=== PATIENT | male | born 1955 | race Caucasian/White ===

== ENCOUNTER 2016-07-06 12:54 | Day surgery (SDC) | payer OTHER ==
--- NOTE | 2016-06-30 10:14 | EKG REPORT ---
SEVERITY:- NORMAL ECG - SINUS RHYTHM : Confirmed by: Felicia Tejeda 30-Jun-2016 10:13:26
[2016-06-30 10:49] LABS: HEMATOCRIT 46.3 % (37.9-51.0); HEMOGLOBIN 15.7 g/dL (13.5-17.0); HGB HCT DIFFERENCE 0.8; MEAN CORPUSCULAR HEMOGLOBIN 30.2 pg (27.0-33.4); MEAN CORPUSCULAR HGB CONC 33.8 g/dL (32.0-36.0); MEAN CORPUSCULAR VOLUME 89 fl (80-97); RED BLOOD COUNT 5.18 10^6/uL (4.35-5.55); RED CELL DISTRIBUTION WIDTH 13.4 % (11.5-14.0); WHITE BLOOD COUNT 5.6 10^3/uL (4.0-10.5)
[2016-06-30 11:10] LABS: ALANINE AMINOTRANSFERASE 37 U/L (21-72); ALBUMIN 4.4 g/dL (3.5-5.0); ALKALINE PHOSPHATASE 66 U/L (38-126); ANION GAP 11 (5-19); ASPARTATE AMINO TRANSFERASE 29 U/L (17-59); BILIRUBIN,TOTAL 0.9 mg/dL (0.2-1.3); BLOOD UREA NITROGEN 21 mg/dL (7-20); CALCIUM 9.8 mg/dL (8.4-10.2); CARBON DIOXIDE 29 mmol/L (22-30); CHLORIDE 102 mmol/L (98-107); CREATININE RESULT 1.07 mg/dL (0.52-1.25); GLUCOSE 95 mg/dL (75-110); SODIUM 141.8 mmol/L (137-145); TOTAL PROTEIN 7.4 g/dL (6.3-8.2)
[~2016-07-06 12:54] MED LIST: ACETAMINOPHEN 325 MG TABLET PO PRN; CEFAZOLIN SODIUM 1 GM in DEXTROSE 5%-WATER 50 ML IV PRN; GLYCOPYRROLATE INJ 0.4 MG/2 ML VIAL ONE; LACTATED RINGERS 1000 ML IV PRN; LIDOCAINE 0.5% INJ-PF (5 MG/ML) 50 ML SDV SUBCUT PRN; LIDOCAINE 2% INJ-PF (20 MG/ML) 10 ML AMPUL ONE; METOCLOPRAMIDE HCL INJ/PF 10 MG/2 ML SDV ONE; NEOSTIGMINE METHYLSULFATE 10 MG/10 ML VIAL ONE; ONDANSETRON HCL INJ/PF 4 MG/2 ML SDV ONE; ROCURONIUM BROMIDE INJ 50 MG/5 ML VIAL IV ONE; SUCCINYLCHOLINE CHLORIDE INJ 200 MG/10 ML VIAL ONE
[2016-07-06] MEDS ORDERED: BUPIVACAINE HCL 0.25 % INJ/PF (2.5 MG/1 ML) 30 ML VIAL ONE (13:59)
[2016-07-06] MEDS ORDERED: PROPOFOL INJ 200 MG/20 ML VIAL IV ONE (18:03)
[2016-07-06] MEDS ORDERED: FENTANYL CITRATE INJ/PF 250 MCG/5 ML AMPULE ONE ×2 (18:03)
[2016-07-06] MEDS ORDERED: MIDAZOLAM 2 MG/2 ML INJ ONE (18:03)
[2016-07-06] MEDS ORDERED: MORPHINE SULFATE 10 MG/ML INJ ONE (18:04)
[2016-07-06] MEDS ORDERED: ACETAMINOPHEN 100 ML IV ONE (18:04)
--- NOTE | 2016-07-06 19:35 | Operative Report ---
Operative Report DATE OF SURGERY: 07/06/16 PREOPERATIVE DIAGNOSIS: Recurrent right inguinal hernia. POSTOPERATIVE DIAGNOSIS: Recurrent right inguinal hernia (direct) OPERATION: Recurrent right internal hernia repair with mesh SURGEON: VILLA OSORIO ANESTHESIA: GA TISSUE REMOVED OR ALTERED: Cord lipoma COMPLICATIONS: None INTRAOPERATIVE FINDINGS: Scar tissue. Cord lipoma but no indirect inguinal hernia. Moderate sized direct inguinal hernia. PROCEDURE: Informed consent was obtained. Patient was brought to the operating room and placed on the operating room table in supine position. After satisfactory induction of general anesthesia patient's abdomen and right groin were prepped and draped in usual sterile fashion. Patient had a pre-existing scar at his right groin and incision was made at this scar, dissection was carried down. The external oblique was the defined. I am cut through scar tissue to get to the external oblique the external oblique appeared to be scarred as well. It was sharply incised thus opening the external inguinal ring. The cord was mobilized at the pubic tubercle taking great care to avoid injury to the cord. This was performed with the sharp dissection due to scarring that was noted. The ilioinguinal nerve was not visible. There was a cord lipoma that was the dissected away and clamped divided and tied but there was no evidence of a indirect inguinal hernia sac. There was a moderate size direct inguinal hernia the herniation was dissected free from the surrounding structures sharply. It was tucked back into the preperitoneal space and mattressing interrupted Vicryl sutures were placed to keep the herniated contents in the repair peritoneal space. Hemostasis appeared excellent. Minimal dissection was performed at the cord to avoid injury to the cord structures. Mesh repair was then performed with the [employer] gre[employer] mesh which was the placed with the sling ends brought back together in a sling-like configuration thus allowing the egress of the cord structures. The mesh laid flat with excellent coverage a single fixation suture was placed at the pubic tubercle. Marcaine was injected at the operative field. External oblique was closed over the repair and the cord structures using running Vicryl suture. Julio Cesar's fascia was closed with interrupted Vicryl sutures. Skin was closed with subcuticular running Monocryl suture. Marcaine was injected at the operative site. Patient tolerated procedure well with no apparent competitions and was taken to the recovery area in stable condition.
[2016-07-06] MEDS ORDERED: ONDANSETRON HCL INJ/PF 4 MG/2 ML SDV IV PRN (19:39)
[2016-07-06] MEDS ORDERED: MORPHINE SULFATE 10 MG/ML INJ IV PRN (19:39)
[2016-07-06] MEDS ORDERED: RINGERS SOLUTION,LACTATED 1,000 ML IV PRN (19:39)
--- NOTE | 2016-07-06 19:39 | PDOC DISCHARGE SUMMARY ---
Discharge Summary (SDC) - Discharge Final Diagnosis: Recurrent right inguinal hernia. Date of Surgery: 07/06/16 Discharge Date: 07/06/16 Condition: Good Treatment or Instructions: Recurrent right inguinal hernia repair with mesh. May discharge the patient home when met discharge criteria. Stay active at home but avoid strenuous activity. May shower in 2 days. Follow-up with me in 2 weeks. Prescriptions: Oxycodone HCl/Acetaminophen [Percocet 7.5-325 Mg Tablet] 1 each PO Q4HP PRN #30 tablet PRN Reason: For Pain Discharge Diet: As Tolerated Discharge Activity: Activity As Tolerated - Stay active but avoid strenuous activity. Report the Following to Your Physician Immediately: Fever over 101 Degrees, Unusual Bleeding, Redness, Drainage-Foul Smelling
[2016-07-07] MEDS: OXYCODONE-ACETAMINOPHEN 5-325 MG TABLET PO PRN ×2 (00:17→06:40)
[2016-07-07 08:27] VITALS: BP 105/61
== END 2016-07-07 08:51 | disposition home or self-care (01) ==
LOC: OROUT 12:54 → 4S 21:06 → OROUT 07-07 08:51
PROVIDERS: ATTEND Surgery
PROC: 0YU50JZ Supplement Right Inguinal Region with Synthetic Substitute, Open Approach (ICD-10-PCS; principal; 2016-07-06 15:00)
DX: K40.91 Unilateral inguinal hernia, without obstruction or gangrene, recurrent (principal); D17.6 Benign lipomatous neoplasm of spermatic cord; K21.9 Gastro-esophageal reflux disease without esophagitis; F90.9 Attention-deficit hyperactivity disorder, unspecified type; Z79.899 Other long term (current) drug therapy
CPT/HCPCS: 93005; 36415; 85027; 80053; 88302 ×2; 93010; 49520; C1781; J2250; J0690; J3490 ×2; J3010; J2765; J2270; J0330; J2405; J2704; J0131; 830

== ENCOUNTER 2018-11-16 11:58 | Emergency (ER) | payer OTHER ==
[2018-11-16 12:29] LABS: ABSOLUTE EOSINOPHILS # (AUTO) 0.1 10^3/uL (0.0-0.6); ABSOLUTE LYMPHOCYTES (AUTO) 1.3 10^3/uL (0.5-4.7); ABSOLUTE MONOCYTES (AUTO) 0.6 10^3/uL (0.1-1.4); ABSOLUTE NEUT (AUTO) 2.9 10^3/uL (1.7-8.2); BASOPHILS % (AUTO) 0.6 % (0-2); EOSINOPHILS % (AUTO) 2.4 % (0-6); HEMATOCRIT 44.3 % (37.9-51.0); HEMOGLOBIN 15.1 g/dL (13.5-17.0); LYMPHOCYTES % (AUTO) 25.8 % (13-45); MEAN CORPUSCULAR HEMOGLOBIN 30.6 pg (27.0-33.4); MEAN CORPUSCULAR HGB CONC 34.2 g/dL (32.0-36.0); MEAN CORPUSCULAR VOLUME 90 fl (80-97); MONOCYTES % (AUTO) 11.6 % (3-13); PLATELET COUNT 167 10^3/uL (150-450); RED BLOOD COUNT 4.93 10^6/uL (4.35-5.55); RED CELL DISTRIBUTION WIDTH 13.6 % (11.5-14.0); SEGMENTED NEUTROPHILS % (AUTO) 59.6 % (42-78); TOTAL CELLS COUNTED % (AUTO) 100 %; WHITE BLOOD COUNT 4.9 10^3/uL (4.0-10.5)
[2018-11-16 12:45] LABS: ALANINE AMINOTRANSFERASE 37 U/L (21-72); ALBUMIN 3.7 g/dL (3.5-5.0); ALKALINE PHOSPHATASE 54 U/L (38-126); ANION GAP 6 (5-19); ASPARTATE AMINO TRANSFERASE 27 U/L (17-59); BILIRUBIN,DIRECT 0.1 mg/dL (0.0-0.4); BILIRUBIN,TOTAL 0.5 mg/dL (0.2-1.3); BLOOD UREA NITROGEN 21 mg/dL (7-20); CALCIUM 9.1 mg/dL (8.4-10.2); CARBON DIOXIDE 26 mmol/L (22-30); CHLORIDE 107 mmol/L (98-107); GLUCOSE 98 mg/dL (75-110); POTASSIUM 4.5 mmol/L (3.6-5.0); SODIUM 139.2 mmol/L (137-145); TOTAL PROTEIN 6.4 g/dL (6.3-8.2)
[2018-11-16 13:02] LABS: TROPONIN I < 0.012 ng/mL
[2018-11-16 13:17] LABS: APPEARANCE,URINE CLEAR; BILIRUBIN,URINE NEGATIVE (NEGATIVE); COLOR,URINE YELLOW; GLUCOSE, URINE NEGATIVE (NEGATIVE); KETONES,URINE NEGATIVE (NEGATIVE); LEUKOCYTE ESTERASE,URINE NEGATIVE (NEGATIVE); NITRITE,URINE NEGATIVE (NEGATIVE); PROTEIN,URINE NEGATIVE (NEGATIVE); UROBILINOGEN,URINE NEGATIVE mg/dL (<2.0)
--- NOTE | 2018-11-16 14:47 | ER Document Report ---
ED Cardiac - General Chief Complaint: Palpitations Stated Complaint: HEART PALPITATIONS Time Seen by Provider: 11/16/18 12:22 Primary Care Provider: CARLOS DE LA ROSA MD [ACTIVE STAFF] - 11/16/18 NICHOLE JAY MD [Primary Care Provider] - Follow up as needed Notes: Patient was in Dr. Lazar's office receiving propofol anesthesia to have an EGD exam performed. As this procedure was finishing, patient's monitor revealed that he was in atrial fibrillation with a ventricular heart rate of about 150. I am not sure how long the episode lasted, but the patient spontaneously converted back to a normal sinus rhythm. He was still brought here for examination. Patient denies any symptoms at all. Denies any chest pain. Denies any shortness of breath. No neurologic deficits. Patient is in very good shape. Says he works out an hour to an hour and a half every day. TRAVEL OUTSIDE OF THE [place] IN LAST 30 DAYS: No - Related Data Allergies/Adverse Reactions: No Known Allergies Allergy (Verified 11/16/18 12:01) Past Medical History - Social History Smoking Status: Former Smoker Frequency of alcohol use: None Drug Abuse: None Family History: Reviewed & Not Pertinent Patient has suicidal ideation: No Patient has homicidal ideation: No - Past Medical History Cardiac Medical History: Reports: Hx Hypercholesterolemia Denies: Hx Atrial Fibrillation, Hx Coronary Artery Disease Pulmonary Medical History: Reports: Hx Pneumonia - x3 GI Medical History: Reports: Hx Gastroesophageal Reflux Disease Past Surgical History: Reports: Hx Tonsillectomy - Immunizations Hx Diphtheria, Pertussis, Tetanus Vaccination: Yes - Tetanus "5-6 years ago" Review of Systems - Review of Systems Notes: REVIEW OF SYSTEMS: CONSTITUTIONAL : Denies fever. Patient has no symptoms or complaints. EENT: Denies eye, ear, nose or mouth or throat pain or other symptoms. CARDIOVASCULAR: Denies chest pain. RESPIRATORY: Denies cough, chest congestion, or shortness of breath. GASTROINTESTINAL: Denies abdominal pain or nausea, vomiting, or diarrhea. GENITOURINARY: Denies difficulty or painful urinating, urinary frequency, blood in urine. MUSCULOSKELETAL: Denies back or neck pain. Denies joint pain or swelling. SKIN: Denies rash or skin lesions. NEUROLOGICAL: Denies altered mental status. Denies headache. Denies sensory loss or motor deficits. ALL OTHER SYSTEMS REVIEWED AND NEGATIVE. Physical Exam - Vital signs Vitals: Temp 97.6 F 11/16/18 12:00 Interpretation: Normal Notes: PHYSICAL EXAMINATION: GENERAL: Well-appearing, in no acute distress. Vital signs are all normal. HEAD: Atraumatic, normocephalic. EYES: Pupils equal round and reactive to light, extraocular movements intact. ENT: oropharynx clear without exudates. Moist mucous membranes. NECK: Normal range of motion, supple. LUNGS: Breath sounds clear and equal bilaterally. HEART: Regular rate and rhythm without murmurs. ABDOMEN: Soft, nontender. No guarding or rebound. No masses. BACK: No tenderness throughout entire back. EXTREMITIES: Normal range of motion without pain. NEUROLOGICAL: Normal speech, normal gait. Normal sensory, motor, and reflex exams. Awake, alert, and oriented x3. Cranial nerves normal. PSYCH: Normal mood, normal affect. SKIN: Warm, dry, no rashes. Course - Re-evaluation Re-evalutation: 11/16/18 18:53 Patient was observed for several hours. All lab studies were normal. I discussed the case with patient's primary care provider, Dr. Erwin, and also with electronic equipment installer, Dr. Ferrari. Dr. Ferrari recommended a 30-day event monitor. Patient was referred to his office - Vital Signs Vital signs: Temp Pulse Resp BP Pulse Ox 97.5 F 60 14 109/80 97 11/16/18 14:56 11/16/18 14:56 11/16/18 14:56 11/16/18 14:56 11/16/18 14:56 - Laboratory Result Diagrams: 11/16/18 12:15 11/16/18 12:15 Laboratory results interpreted by me: 11/16/18 11/16/18 12:15 12:15 BUN 21 H Urine Ascorbic Acid 20 H - EKG Interpretation by Ct EKG shows normal: Sinus rhythm Rate: Normal Rhythm: NSR Additional EKG results interpreted by nd: 11/16/18 18:55 Patient EKG is stone cold normal. Discharge - Discharge Clinical Impression: Atrial fibrillation, Atrial fibrillation, currently in sinus rhythm Condition: Stable Disposition: HOME, SELF-CARE Additional Instructions: Atrial Fibrillation Atrial fibrillation is an abnormal heart rhythm, caused by irregular electrical circuits in the upper heart chamber. It can be caused by heart valve disease, hardening of the arteries, or metabolic problems such as thyroid disease, or may occur without a clear cause. Atrial fibrillation may occur only occasionally, or may be chronic. Atrial fibrillation often results in a very fast heart rate, with palpitations, lightheadedness, and shortness of breath. Treatment is to slow the abnormally fast rate, and to convert the rhythm back to normal, if possible. Many patients stay in atrial fibrillation for years without symptoms or complications. Your doctor will decide whether you can be converted back to a normal heart rhythm. Contact the doctor or emergency medical system at once if you develop chest pain, shortness of breath, or severe lightheadedness, or if you develop any disturbance of consciousness, problems with speech, or localized weakness. Your heart rhythm has returned to normal. Your work-up was normal as well. I have spoken with Dr. Erwin and with Dr. De La Rosa, our electronic equipment installer. They recommend wearing a heart monitor. Dr. De La Rosa said that if you would come by his office they will get you set up with the monitor to see if you are having more frequent episodes of this atrial fibrillation. Return for us to reevaluate your condition at any time if your symptoms worsen or return and will not go away. 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 FOLLOW-UP CARE: If you have been referred to a physician for follow-up care, call the physicia office for an appointment as you were instructed or within the next two days. If you experience worsening or a significant change in your symptoms, notify the physician immediately or return to the Emergency Department at any time for re-evaluation. Referrals: NICHOLE JAY MD [Primary Care Provider] - Follow up as needed CARLOS DE LA ROSA MD [ACTIVE STAFF] - 11/16/18
[2018-11-16 14:59] VITALS: BP 109/80
--- NOTE | 2018-11-16 19:35 | EKG REPORT ---
SEVERITY:- NORMAL ECG - SINUS RHYTHM : Confirmed by: Kim Hoskins MD 16-Nov-2018 19:34:44
== END 2018-11-16 14:56 | disposition home or self-care (01) ==
LOC: ER 11:58
DX: I48.91 Unspecified atrial fibrillation (principal); Z98.890 Other specified postprocedural states; Z87.891 Personal history of nicotine dependence
CPT/HCPCS: 36415; 80053; 81001; 82553; 83735; 84484; 85025; 93005; 93010; 99285

== ENCOUNTER → 2019-02-28 | Outpatient (CLI) | payer OTHER, MEDICARE | LOC: RAD 06:58 | PROVIDERS: ATTEND Specialist | DX: I48.92 Unspecified atrial flutter (principal) | CPT/HCPCS: 93017; 78452; A9500; Q9969 ==